=== PATIENT | female | born 1950 | race Caucasian/White ===

== ENCOUNTER → 2019-05-13 | Day surgery (SDC) | payer MEDICARE, OTHER ==
[~2019-05-13] VITALS: Ht 160 cm; Wt 72.6 kg
[~2019-05-13] MED LIST: CT SWABBABLE VALVE TRANS SET 1 EA INFUS.SET MC ONE; ESCI20TA PO; IOHEXOL-350 100 ML VIAL IV ONE; IV NS 0.9% 250 ML IV ONE; IV NS 0.9% 500 ML IV PRN; LAMO200T2 PO; METOPROLOL TARTRATE INJ 5 MG/5 ML AMPUL IVP ONE; METOPROLOL TARTRATE INJ 5 MG/5 ML AMPUL ONE; NITROGLYCERIN 0.4 MG/TAB BOTTLE ONE; NITROGLYCERIN 0.4 MG/TAB BOTTLE SL ONE
[2019-05-13 16:15] VITALS: BP 110/54
--- NOTE | 2019-05-13 16:45 | NUR ---
Pt s/p CTA. Pt arrived A&Ox2, drowsy unable to follow some commands, forgetful. Per EMT report, pt received ativan and norco prior to arrival. Dr Go informed. CTA completed without any adverse effects. Report given to EMT for DANE.
== END | disposition home or self-care (01) ==
LOC: CT 14:39
PROVIDERS: ATTEND Internal Medicine Cardiovascular Disease
DX: J90 Pleural effusion, not elsewhere classified (principal); J98.11 Atelectasis; M47.814 Spondylosis without myelopathy or radiculopathy, thoracic region
CPT/HCPCS: 75574; J3490 ×2; J7050; Q9967